=== PATIENT | female | born 1945 | race Asian ===

== ENCOUNTER 2016-10-30 23:09 | Inpatient (IN) | payer OTHER ==
[~2016-10-30] VITALS: Ht 152.4 cm; Wt 58.1 kg
[~2016-10-30 23:09] MED LIST: ALEN70TA PO; AMLO10TA PO; ATI.5 PO; CLON0.1T42 PO; COZ50 PO; GLIP10TA3 PO; HYDR-3638 PO; LACT10SO1 PO; METF850T PO; ORE25 PO; PANT40VI PO
--- NOTE | 2016-10-30 23:09 | NUR ---
Patient was BIBA at this time.
--- NOTE | 2016-10-30 23:20 | NUR ---
Patient taken to bed 06 via gurney per EMS
[2016-10-30 23:23] VITALS: BP 166/82
[2016-10-30] MEDS ORDERED: hydrALAZINE 20 MG/ML VIAL IM ONE (23:25)
[2016-10-30] MEDS ORDERED: NACL 0.9% 1,000 ML IV ONE (23:25)
--- NOTE | 2016-10-30 23:25 | NUR ---
71Y F BIB [facility] C/O HIGH BP AND SLIGHT GRADE FEVER, SEEN IN AN URGENT CARE YESTERDAY WITH EAR INFECTION WITH PRESCRIPTION. SBP 150'S AND DBP 60'S. AFEBRILE. NO DISTRESS NOTED.
--- NOTE | 2016-10-30 23:34 | NUR ---
Dr. Joy evaluating patient at bedside.
[2016-10-30 23:55] LABS: BASOPHILS # (AUTO) 0.1 K/uL (0.00-0.22); BASOPHILS % (AUTO) 2.7 % (0.0-2.0); EOSINOPHILS # (AUTO) 0.3 K/uL (0-0.4); HEMATOCRIT 36.7 % (36-48); HEMOGLOBIN 12.1 g/dL (12.0-16.0); LYMPHOCYTES # (AUTO) 0.7 K/uL (2.5-16.5); LYMPHOCYTES % (AUTO) 21.6 % (20.5-51.1); MEAN CORPUSCULAR HEMOGLOBIN 25 pg (27-31); MEAN CORPUSCULAR HGB CONC 33 g/dL (33-37); MEAN CORPUSCULAR VOLUME 77 fL (80-94); MONOCYTES # (AUTO) 0.4 K/uL (0.8-1.0); MONOCYTES % (AUTO) 12.4 % (1.7-9.3); NEUTROPHILS # (AUTO) 1.7 K/uL (1.8-7.7); NEUTROPHILS % (AUTO) 55.3 % (42.2-75.2); PLATELET COUNT (AUTO) 207 K/uL (140-450); RED BLOOD CELL COUNT(AUTO) 4.79 MIL/uL (4.20-5.40); RED CELL DISTRIBUTION WIDTH 13.8 % (11.6-13.7); WHITE BLOOD COUNT (AUTO) 3.3 K/uL (4.8-10.8)
[2016-10-31 00:01] LABS: ALBUMIN 3.8 g/dL (3.4-5.0); ANION GAP 11.6 (8-16); CALCIUM 8.6 mg/dL (8.5-10.1); CARBON DIOXIDE 31.1 mmol/L (21-32); CREATININE 0.7 mg/dL (0.6-1.3); POTASSIUM 3.7 mmol/L (3.5-5.1); TOTAL BILIRUBIN 0.4 mg/dL (0.0-1.0); TOTAL PROTEIN, SERUM 8.2 g/dL (6.4-8.2)
[2016-10-31 00:07] LABS: LACTIC ACID 2.8 mmol/L (0.4-2.0); PARTIAL THROMBOPLASTIN TIME 32.9 secs (22-35.6); PROTHROMBIN TIME 9.7 secs (10.8-13.4)
[2016-10-31] MEDS ORDERED: NACL 0.9% 1,500 ML IV ONE (00:10)
[2016-10-31] MEDS ORDERED: NACL 0.9% 250 ML IV ONE (00:10)
[2016-10-31] MEDS ORDERED: ATI.5 PO (00:26)
[2016-10-31] MEDS ORDERED: LOSA100T25 PO (00:26)
[2016-10-31] MEDS ORDERED: GLIP10TA12 PO (00:26)
[2016-10-31] MEDS ORDERED: AMLO10TA2 PO (00:26)
[2016-10-31] MEDS ORDERED: [UNRECOGNIZED DRUG - CODE] PO (00:26)
[2016-10-31] MEDS ORDERED: LON2.5 GT (00:26)
[2016-10-31] MEDS ORDERED: ALEN70TA52 PO (00:26)
[2016-10-31] MEDS ORDERED: CLON0.1T42 PO (00:26)
[2016-10-31] MEDS ORDERED: ONDANSETRON 4 MG/2 ML VIAL IVP ONE (01:10)
[2016-10-31 01:58] LABS: APPEARANCE,URINE CLEAR (CLEAR); BILIRUBIN,URINE NEGATIVE (NEGATIVE); BLOOD, URINE TRACE-I (NEGATIVE); COLOR,URINE YELLOW (YELLOW); LEUKOCYTE ESTERASE ,URINE NEGATIVE (NEGATIVE); NITRITE, URINE NEGATIVE (NEGATIVE); PH,URINE 7.5 (5.0-9.0); PROTEIN,URINE 2+ (NEGATIVE); UGLUCOSE NEGATIVE (NEGATIVE); UROBILINOGEN,URINE 0.2 EU/dL (0.2 - 1)
[2016-10-31 02:06] LABS: BACTERIA,URINE None Seen /HPF (None Seen); SQUAMOUS EPITHELIAL CELL,UR 0-3 (FEW) /LPF (0-3 (FEW)); WBC,URINE 0-5 (RARE) /HPF (0-5)
[2016-10-31 02:07] LABS: HYALINE CASTS, URINE 0-3 /LPF (None Seen); MUCUS,URINE 3+ /LPF (None Seen)
--- NOTE | 2016-10-31 03:15 | NUR ---
Patient will be admitted to care of DR POSEY. Admited to TELE. Will go to room 121B. Belongings list completed. Report to CHARLIE PEGUERO.
[2016-10-31 03:30] VITALS: BP 145/59
--- NOTE | 2016-10-31 03:30 | NUR ---
ADMITTED A PATIENT FROM ER. TRANSPORTED VIA GURNEY, ACCOMPANIED BY ER NURSE. PATIENT IS AAOX4, HAS NO COMPLAIN OF PAIN AT THIS TIME. ON ROOM AIR, NO S/S OF RESPIRATORY DISTRESS/DISCOMFORT NOTED. SKIN CHECKING BY CHARGE NURSE, NO SKIN ISSUES, SKIN IS INTACT. ID BAND UPDATED. PLAN OF CARE DISCUSSED, VERBALIZED UNDERSTANDING. SAFETY MEASURES INITIATED CALL LIGHT WITHIN REACH, WILL CONTINUE TO MONITOR.
[2016-10-31] MEDS ORDERED: MORPHINE SULFATE 2 MG/ML SYR IVP PRN (03:45)
[2016-10-31] MEDS ORDERED: HYDROcodone/APAP 5/325 MG 1 TAB TAB PO PRN (03:45)
[2016-10-31] MEDS ORDERED: ACETAMINOPHEN 325 MG TAB PO PRN (03:45)
[2016-10-31] MEDS ORDERED: ONDANSETRON 4 MG/2 ML VIAL IVP PRN (03:45)
--- NOTE | 2016-10-31 05:00 | NUR ---
PATIENT AMBULATED TO THE RESTROOM. PATIENT DENIES ANY PAIN. NO S/S OF RESPIRATORY DISTRESS/DISCOMFORT NOTED.
[2016-10-31] MEDS: NACL 0.9% 1,000 ML IV SCH ×2 (05:10→13:45)
[2016-10-31 06:38] LABS: HEMATOCRIT 33.9 % (36-48); HEMOGLOBIN 11.2 g/dL (12.0-16.0); MEAN CORPUSCULAR HEMOGLOBIN 25 pg (27-31); MEAN CORPUSCULAR VOLUME 76 fL (80-94); RED BLOOD CELL COUNT(AUTO) 4.43 MIL/uL (4.20-5.40); WHITE BLOOD COUNT (AUTO) 4.8 K/uL (4.8-10.8)
[2016-10-31 06:39] LABS: BASOPHILS % (AUTO) 0.5 % (0.0-2.0); EOSINOPHILS # (AUTO) 0.1 K/uL (0-0.4); EOSINOPHILS % (AUTO) 1.8 % (0.0-4.0); LYMPHOCYTES # (AUTO) 0.7 K/uL (2.5-16.5); LYMPHOCYTES % (AUTO) 14.5 % (20.5-51.1); MEAN CORPUSCULAR HGB CONC 33 g/dL (33-37); MONOCYTES # (AUTO) 0.4 K/uL (0.8-1.0); MONOCYTES % (AUTO) 9.3 % (1.7-9.3); NEUTROPHILS # (AUTO) 3.6 K/uL (1.8-7.7); NEUTROPHILS % (AUTO) 73.9 % (42.2-75.2); PLATELET COUNT (AUTO) 191 K/uL (140-450); RED CELL DISTRIBUTION WIDTH 13.7 % (11.6-13.7)
--- NOTE | 2016-10-31 07:10 | NUR ---
ASSUMED CONTINUITY OF CARE. NO SIGNS AND SYMPTOMS OF ACUTE DISTRESS NOTED. INITIAL ASSESSMENT DONE. KEEP COMFORTABLE ON BED. EXPLAINED DIAGNOSIS, PLAN OF CARE, PAIN MANAGEMENT TEACHING, USE OF CALL LIGHT/BED/TV/BATHROOM. VERBALIZED UNDERSTANDING. CALL LIGHT WITHIN REACH.
--- NOTE | 2016-10-31 07:10 | NUR ---
ENDORSED PATIENT TO DAY SHIFT NURSE. PATIENT IS IN STABLE CONDITION.
[2016-10-31 07:16] LABS: ANION GAP 12.4 (8-16); CARBON DIOXIDE 24.7 mmol/L (21-32); POTASSIUM 4.1 mmol/L (3.5-5.1)
[2016-10-31 07:17] LABS: CREATININE 0.6 mg/dL (0.6-1.3)
[2016-10-31 07:26] LABS: LACTIC ACID 2.5 mmol/L (0.4-2.0)
--- NOTE | 2016-10-31 07:43 | NUR ---
PATIENT HAS BEEN SCREENED AND CATEGORIZED HIGH NUTRITION RISK. PATIENT WILL BE SEEN WITHIN 1-2 DAYS OF ADMISSION. 10/31/16-11/01/[address]
[2016-10-31 08:00] VITALS: BP 136/69
--- NOTE | 2016-10-31 08:00 | NUR ---
Patient's Plan of Care was discussed and reviewed with WEEDER THINNER: BAUTISTA THOMASON
--- NOTE | 2016-10-31 08:12 | NUR ---
CM NOTE INITIAL REVIEW SENT TO [facility] FAX# [phone] PH# [phone] [address] [address]T [phone]
--- NOTE | 2016-10-31 08:28 | NUR ---
WENT TO BATHROOM WITHOUT ASSISTANCE. TOLERATED WELL. NO C/O PAIN. NO SOB, NOTED.
[2016-10-31] MEDS ORDERED: MAG SULF 2000 MG/WATER PREMIX 100 ML IV SCH (08:30)
[2016-10-31] MEDS: LORATADINE 10 MG TAB PO SCH (09:13)
[2016-10-31] MEDS: FLUTICASONE NASAL 50 MCG/ACTUATION 16 GM BTL NS SCH ×2 (09:13→20:14)
[2016-10-31 12:00] VITALS: BP 133/63
[2016-10-31] MEDS ORDERED: DEXTROSE 50% 50 ML SYR IVP PRN (12:10)
[2016-10-31] MEDS ORDERED: LACTOBACILLUS RHAMNOSUS GG 1 EACH CAP PO SCH (12:30)
[2016-10-31] MEDS ORDERED: metFORMIN 500 MG TAB PO SCH (12:30)
[2016-10-31] MEDS: cloNIDine 0.1 MG TAB PO SCH ×2 (12:58→17:45)
[2016-10-31] MEDS ORDERED: LOSARTAN 50 MG TAB PO SCH (13:00)
[2016-10-31] MEDS ORDERED: MINOXIDIL 2.5 MG TAB PO SCH (13:00)
[2016-10-31] MEDS ORDERED: amLODIPine 5 MG TAB PO SCH (13:00)
--- NOTE | 2016-10-31 13:12 | NUR ---
DR. WILL CAME INSIDE PT. ROOM AND SPOKE TO PT.. TEMP 98.2, BP 159/71, HR 74, RESP 18, O2 SAT 97% ON ROOM AIR. NO C/O PAIN. ASYMPTOMATIC. VERIFIED WITH DR. WILL ABOUT LATEST OF ORDER OF COZAAR 100 MG. PO, AMLODOPINE 10 MG PO, AND MINOXIDEL 2.[address] WILL SAID "GO AHEAD GIVE THE MEDICINE."
--- NOTE | 2016-10-31 13:45 | NUR ---
10/31/16 RD INITIAL ASSESSMENT COMPLETED PLEASE REFER TO NUTRITION ASSESSMENT UNDER CARE ACTIVITY FOR ESTIMATED NUTRITIONAL NEEDS. RD RECOMMENDATIONS: 1. CONTINUE ON CCHO 60 GM DIET TOLERATED. 2. INCREASE PROTEIN NEEDS D/T SEPSIS. 3. ENCOURAGE INCREASED PO INTAKES. 4. RD WILL F/U 3-5 DAYS; MODERATE RISK. GUANAKITO MORENO RD
[2016-10-31] MEDS ORDERED: LEVOFLOXACIN 500 MG/D5W PREMIX 100 ML IV SCH (14:00)
--- NOTE | 2016-10-31 15:52 | NUR ---
CALLED PT. [place] AT AND INFORMED PT. TRANSFER TO [facility] TODAY 10/31/16 PER MD ORDER. PTTiffany HALL VERBALIZED UNDERSTANDING VIA PHONE. INFORMED CHARGE NURSE YOGESH RHODES. Addendum: 10/31/16 at 1603 by Abdi Neal LVN WRONG ENTRY: ENTERED AT WRONG PATIENT.
[2016-10-31 16:00] VITALS: BP 135/62
[2016-10-31] MEDS ORDERED: ECOTRIN 81 MG TABEC PO SCH (16:00)
[2016-10-31] MEDS ORDERED: ATORVASTATIN 20 MG TAB PO SCH (16:00)
[2016-10-31] MEDS: glipiZIDE 10 MG TAB PO SCH (16:30)
[2016-10-31] MEDS: metFORMIN 500 MG TAB PO SCH (17:00)
[2016-10-31] MEDS: BLOOD GLUCOSE MONITORING 1 DEV DEV FS SCH ×2 (17:22→20:13)
--- NOTE | 2016-10-31 19:13 | NUR ---
REPORT GIVEN TO BOGDAN RHODES. IVF INFUSING WELL. IN STABLE CONDITION.
--- NOTE | 2016-10-31 19:14 | NUR ---
RECEIVED REPORT FROM DAY SHIFT NURSE. PT IS AWAKE WITH AT BEDSIDE. HAS NO COMPLAIN OF PAIN. ON ROOM AIR, NO S/S OF RESPIRATORY DISTRESS/DISCOMFORT NOTED. IV SITE IS PATENT, INTACT AND INFUSING WELL. PLAN OF CARE DISCUSSED, VERBALIZED UNDERSTANDING. SAFETY MEASURES CHECKED, CALL LIGHT WITHIN REACH. WILL CONTINUE TO MONITOR.
[2016-10-31 20:00] VITALS: BP 124/59
[2016-10-31] MEDS: LORazepam 0.5 MG TAB PO SCH ×2 (20:15→20:21)
[2016-10-31] MEDS: INSULIN LISPRO SLIDING SCALE 100 UNITS/ML VIAL SUBQ PRN (20:17)
--- NOTE | 2016-10-31 20:21 | NUR ---
PT REFUSED TO TAKE ATIVAN 0.5 MG. PROVIDED HEALTH TEACHING, BENEFITS AND S/E, VERBALIZED UNDERSTANDING.
[2016-11-01] VITALS: BP 139/61
--- NOTE | 2016-11-01 | NUR ---
V/S CHECKED AND STABLE. HAS NO COMPLAIN OF PAIN AT THIS TIME. NO S/S OF RESPIRATORY DISTRESS/ DISCOMFORT NOTED. CALL LIGHT WITHIN REACH.
--- NOTE | 2016-11-01 01:33 | NUR ---
PT SLEEPING AT THIS TIME. SAFETY MEASURES CHECKED, CALL LIGHT WITHIN REACH.
[2016-11-01 04:00] VITALS: BP 143/73
--- NOTE | 2016-11-01 04:08 | NUR ---
PT AMBULATED TO THE REST ROOM WITH MINIMAL ASSISTANCE. NOT IN DISTRESS. NO S/S OF RESPIRATORY DISTRESS/DISCOMFORT.
--- NOTE | 2016-11-01 05:17 | NUR ---
DIRECTOR OF ASSISTED LIVING AT BEDSIDE FOR BLOOD DRAW.
--- NOTE | 2016-11-01 05:42 | NUR ---
BLOOD SUGAR CHECKED, BSL= 111, NO INSULIN COVERAGE.
[2016-11-01 06:03] LABS: HEMATOCRIT 32.4 % (36-48); HEMOGLOBIN 10.7 g/dL (12.0-16.0); MEAN CORPUSCULAR HEMOGLOBIN 25 pg (27-31); MEAN CORPUSCULAR HGB CONC 33 g/dL (33-37); MEAN CORPUSCULAR VOLUME 76 fL (80-94); PLATELET COUNT (AUTO) 200 K/uL (140-450); RED BLOOD CELL COUNT(AUTO) 4.24 MIL/uL (4.20-5.40); RED CELL DISTRIBUTION WIDTH 13.8 % (11.6-13.7); WHITE BLOOD COUNT (AUTO) 4.2 K/uL (4.8-10.8)
[2016-11-01 06:27] LABS: ANION GAP 11.8 (8-16); CALCIUM 7.7 mg/dL (8.5-10.1); CARBON DIOXIDE 27.2 mmol/L (21-32); CREATININE 0.8 mg/dL (0.6-1.3)
[2016-11-01 06:36] LABS: MAGNESIUM 1.8 mg/dL (1.8-2.4); PHOSPHORUS 3.7 mg/dL (2.5-4.9)
[2016-11-01] MEDS: glipiZIDE 10 MG TAB PO SCH ×2 (06:43→17:21)
[2016-11-01] MEDS: BLOOD GLUCOSE MONITORING 1 DEV DEV FS SCH ×4 (06:43→21:15)
[2016-11-01 06:48] LABS: BAND % (MANUAL) 2 % (0-8); EOSINOPHILS % (MANUAL) 6 % (0-4); LYMPHOCYTES % (MANUAL) 16 % (20-46); MONOCYTES % (MANUAL) 14 % (5-12); NEUTROPHILS % (MANUAL) 62 (43-65)
--- NOTE | 2016-11-01 07:28 | NUR ---
ENDORSED REPORT TO DAY SHIFT NURSE FOR CONTINUITY OF CARE. PT IS IN STABLE CONDITION.
--- NOTE | 2016-11-01 07:30 | NUR ---
RECEIVED PT RESTING COMFORTABLY IN BED, AAOX4, ABLE TO VERBALIZE NEEDS; NO C/O PAIN OR SOB AT THIS TIME, NO S/S DISTRESS. ROUTINE/PLAN OF CARE DISCUSSED AND REVIEWED, PT VERBALIZES UNDERSTANDING AND COMPLIANCE. IVF INFUSING WELL TO RIGHT FA, SITE ASYMPTOMATIC. SAFETY PRECAUTIONS OBSERVED AND MAINTAINED. ENCOURAGED PT TO CALL FOR ASSISTANCE NEEDED.
[2016-11-01 08:00] VITALS: BP 158/72
[2016-11-01] MEDS: NACL 0.9% 1,000 ML IV SCH (08:06)
[2016-11-01] MEDS: LACTULOSE 20 GM/30 ML UDC PO SCH (08:53)
[2016-11-01] MEDS: LACTOBACILLUS RHAMNOSUS GG 1 EACH CAP PO SCH (08:53)
[2016-11-01] MEDS: MINOXIDIL 2.5 MG TAB PO SCH (08:54)
[2016-11-01] MEDS: metFORMIN 500 MG TAB PO SCH ×2 (08:54→17:21)
[2016-11-01] MEDS: cloNIDine 0.1 MG TAB PO SCH ×3 (08:55→16:45)
[2016-11-01] MEDS: LOSARTAN 50 MG TAB PO SCH (08:57)
[2016-11-01] MEDS: LORATADINE 10 MG TAB PO SCH (08:57)
[2016-11-01] MEDS: ECOTRIN 81 MG TABEC PO SCH (08:58)
[2016-11-01] MEDS: amLODIPine 5 MG TAB PO SCH (08:58)
[2016-11-01] MEDS: FLUTICASONE NASAL 50 MCG/ACTUATION 16 GM BTL NS SCH ×2 (08:59→20:25)
[2016-11-01] MEDS: LORazepam 0.5 MG TAB PO SCH ×3 (09:00→21:15)
--- NOTE | 2016-11-01 09:00 | NUR ---
VS NOTED; ADMINISTERED ROUTINE MEDS ORDERED WITH EDUCATION, PT TOLERATED WELL. INDEPENDENT ADLs OBSERVED, OOB WITH STEADY GAIT.
[2016-11-01] MEDS: ATORVASTATIN 20 MG TAB PO SCH (09:12)
--- NOTE | 2016-11-01 09:39 | NUR ---
CM NOTE CONCURRENT REVIEW SENT TO [facility] FAX# [phone] PH# [phone] [address] [address]T [phone]
[2016-11-01] MEDS ORDERED: CALCIUM CARBONATE 500 MG TAB PO SCH (10:00)
[2016-11-01 12:00] VITALS: BP 147/78
[2016-11-01] MEDS ORDERED: FUROSEMIDE 20 MG TAB PO SCH (12:00)
--- NOTE | 2016-11-01 12:00 | NUR ---
VSS. CONDITION STABLE.
[2016-11-01] MEDS: INSULIN LISPRO SLIDING SCALE 100 UNITS/ML VIAL SUBQ PRN (12:45)
[2016-11-01] MEDS ORDERED: LEVOFLOXACIN 250 MG/D5 PREMIX 50 ML IV SCH (13:00)
--- NOTE | 2016-11-01 14:40 | NUR ---
ZOFRAN IVP GIVEN ORDERED FOR C/O NAUSEA AND UPSET STOMACH, RELAXATION TECHNIQUES GIVEN. WILL CONTINUE TO MONITOR.
--- NOTE | 2016-11-01 15:00 | NUR ---
PT SEEN SITTING UP IN CHAIR NO S/S DISTRESS, VERBALIZES NAUSEA/UPSET STOMACH RELIEF.
[2016-11-01 16:00] VITALS: BP 107/51
[2016-11-01] MEDS: CALCIUM CARBONATE 500 MG TAB PO SCH (17:21)
--- NOTE | 2016-11-01 19:15 | NUR ---
RECEIVED REPORT FROM DAY SHIFT NURSE. PT IS AAOX4, HAS NO COMPLAIN OF PAIN. ON ROOM AIR, NO S/S OF RESPIRATORY DISTRESS/DISCOMFORT NOTED. IV SITE IS PATENT AND INTACT. PLAN OF CARE DISCUSSED, VERBALIZED UNDERSTANDING. SAFETY MEASURES CHECKED, CALL LIGHT WITHIN REACH. WILL CONTINUE TO MONITOR.
[2016-11-01 20:00] VITALS: BP 146/71
--- NOTE | 2016-11-01 21:16 | NUR ---
BLOOD SUGAR CHECKED, BSL= 174, INSULIN COVERAGE OF 2 UNITS, PT REFUSED TO RECEIVE INSULIN. PROVIDED HEALTH TEACHING, BENEFITS AND S/E, PT STATED " THAT'S OKAY, 174 IS OKAY."
[2016-11-02] VITALS: BP 150/87
--- NOTE | 2016-11-02 | NUR ---
PT SLEEPING, EASILY AWAKEN BY HER NAME. V/S CHECKED AND STABLE. HAS NO S/S OF RESPIRATORY DISTRESS/DISCOMFORT NOTED.
--- NOTE | 2016-11-02 02:49 | NUR ---
PT SLEEPING. NO S/S OF RESPIRATORY DISTRESS/[id number] NOTED. CALL LIGHT WITHIN REACH.
[2016-11-02 04:00] VITALS: BP 151/79
--- NOTE | 2016-11-02 04:00 | NUR ---
V/S CHECKED ANS STABLE. HAS NO COMPLAIN OF PAIN. NO S/S OF RESPIRATORY DISTRESS/DISCOMFORT NOTED.
[2016-11-02] MEDS: BLOOD GLUCOSE MONITORING 1 DEV DEV FS SCH ×2 (06:03→11:30)
--- NOTE | 2016-11-02 06:04 | NUR ---
BLOOD SUGAR CHECKED, BSL= 69. OFFERED ORANGE JUICE WITH SUGAR TO THE PT.
[2016-11-02 06:21] LABS: HEMATOCRIT 37.5 % (36-48); HEMOGLOBIN 12.3 g/dL (12.0-16.0); MEAN CORPUSCULAR HEMOGLOBIN 25 pg (27-31); MEAN CORPUSCULAR HGB CONC 33 g/dL (33-37); MEAN CORPUSCULAR VOLUME 77 fL (80-94); PLATELET COUNT (AUTO) 217 K/uL (140-450); RED BLOOD CELL COUNT(AUTO) 4.87 MIL/uL (4.20-5.40); RED CELL DISTRIBUTION WIDTH 14.3 % (11.6-13.7); WHITE BLOOD COUNT (AUTO) 3.7 K/uL (4.8-10.8)
[2016-11-02 06:40] LABS: ANION GAP 9.4 (8-16); CALCIUM 8.4 mg/dL (8.5-10.1); CARBON DIOXIDE 30.6 mmol/L (21-32); CREATININE 0.8 mg/dL (0.6-1.3)
[2016-11-02] MEDS: glipiZIDE 10 MG TAB PO SCH (06:43)
--- NOTE | 2016-11-02 07:10 | NUR ---
ENDORSED REPORT TO DAY SHIFT NURSE FOR CONTINUITY OF CARE. PT IS IN STABLE CONDITION.
[2016-11-02 07:34] LABS: BAND % (MANUAL) 2 % (0-8); EOSINOPHILS % (MANUAL) 7 % (0-4); LYMPHOCYTES % (MANUAL) 30 % (20-46); MONOCYTES % (MANUAL) 17 % (5-12); NEUTROPHILS % (MANUAL) 44 (43-65)
[2016-11-02 08:00] VITALS: BP 163/75
[2016-11-02] MEDS: LACTULOSE 20 GM/30 ML UDC PO SCH (08:43)
[2016-11-02] MEDS: MINOXIDIL 2.5 MG TAB PO SCH (08:44)
[2016-11-02] MEDS: CALCIUM CARBONATE 500 MG TAB PO SCH (08:44)
[2016-11-02] MEDS: ATORVASTATIN 20 MG TAB PO SCH (08:45)
[2016-11-02] MEDS: ECOTRIN 81 MG TABEC PO SCH (08:45)
[2016-11-02] MEDS: amLODIPine 5 MG TAB PO SCH (08:45)
[2016-11-02] MEDS: LORazepam 0.5 MG TAB PO SCH ×2 (08:46→08:58)
[2016-11-02] MEDS: LOSARTAN 50 MG TAB PO SCH (08:46)
[2016-11-02] MEDS: LACTOBACILLUS RHAMNOSUS GG 1 EACH CAP PO SCH (08:46)
[2016-11-02] MEDS: metFORMIN 500 MG TAB PO SCH (08:47)
[2016-11-02] MEDS: cloNIDine 0.1 MG TAB PO SCH (08:48)
[2016-11-02] MEDS: LORATADINE 10 MG TAB PO SCH (08:49)
[2016-11-02] MEDS: FLUTICASONE NASAL 50 MCG/ACTUATION 16 GM BTL NS SCH (08:50)
[2016-11-02] MEDS ORDERED: FUROSEMIDE 20 MG TAB PO SCH (09:00)
--- NOTE | 2016-11-02 09:45 | NUR ---
PT RESTING IN BED, CALL LIGHT WITHIN REACH, WILL CONTINUE TO MONITOR.
[2016-11-02 10:26] VITALS: BP 151/78
--- NOTE | 2016-11-02 11:15 | NUR ---
PT SITTING UP IN BED, WATCHING TV, NO S/S OF RESPIRATORY DISTRESS OR DISCOMFORT NOTED, CALL LIGHT WITHIN REACH, WILL CONTINUE TO MONITOR.
[2016-11-02] MEDS ORDERED: ATOR20TA40 PO (11:16)
[2016-11-02] MEDS ORDERED: FURO20TA8 PO (11:16)
[2016-11-02] MEDS ORDERED: ASPI81TA28 PO (11:16)
[2016-11-02] MEDS ORDERED: LEVO750T2 PO (11:30)
[2016-11-02] MEDS ORDERED: LACT10CA PO (11:31)
[2016-11-02] MEDS: INSULIN LISPRO SLIDING SCALE 100 UNITS/ML VIAL SUBQ PRN (11:46)
--- NOTE | 2016-11-02 13:45 | NUR ---
PT STABLE UPON DISCHARGE, ID BAND REMOVED, IV REMOVED, CATHETER INTACT.
--- NOTE | 2016-11-02 14:59 | NUR ---
CM NOTE CONCURRENT REVIEW SENT TO [facility] FAX# [phone] PH# [phone] [address] [address]T [phone]
== END 2016-11-02 13:45 | disposition home or self-care (01) | DRG 304 ==
LOC: MED 23:26 → MTU 10-31 02:31
PROVIDERS: ADMIT Family Medicine; ATTEND Family Medicine
DX: I16.0 Hypertensive urgency (principal); N17.0 Acute kidney failure with tubular necrosis; E87.1 Hypo-osmolality and hyponatremia; E83.42 Hypomagnesemia; H66.92 Otitis media, unspecified, left ear; E11.65 Type 2 diabetes mellitus with hyperglycemia; E83.51 Hypocalcemia; J32.9 Chronic sinusitis, unspecified; E78.5 Hyperlipidemia, unspecified; G90.9 Disorder of the autonomic nervous system, unspecified; I10 Essential (primary) hypertension; Z66 Do not resuscitate; Z79.899 Other long term (current) drug therapy; Z79.84 Long term (current) use of oral hypoglycemic drugs; Z90.5 Acquired absence of kidney; Z85.3 Personal history of malignant neoplasm of breast; Z86.73 Personal history of transient ischemic attack (TIA), and cerebral infarction without residual deficits; Z87.442 Personal history of urinary calculi; Z92.3 Personal history of irradiation; Z82.49 Family history of ischemic heart disease and other diseases of the circulatory system; Z82.3 Family history of stroke; Z83.3 Family history of diabetes mellitus
CPT/HCPCS: 36415; 70450; 71010; 80048; 80053; 81001; 82948; 83036; 83605; 83735; 83880; 84100; 84484; 85025; 85610; 85730; 87040; 87081; 87086; 93005; 93925; 93970; 93976; 96361; 96374; 96375; 97140; 99285; C1758; J0360; J1815; J1956; J2405; J3475; J7030; Q0092

== ENCOUNTER 2016-11-24 19:02 | Observation (INO) | payer OTHER ==
[~2016-11-24] VITALS: Ht 152.4 cm; Wt 59.0 kg
[~2016-11-24 19:02] MED LIST changes: +ASPI81TA28 PO; +ATOR20TA40 PO; +FURO20TA8 PO; -HYDR-3638 PO; +LACT10CA PO; +LEVO750T2 PO; +LON2.5 GT; -METF850T PO; -ORE25 PO; +[UNRECOGNIZED DRUG - CODE] PO
[2016-11-24 19:19] VITALS: BP 206/79
--- NOTE | 2016-11-24 19:23 | NUR ---
BIB BY [facility] DUE TO N/V/D AND ABDOMINAL PAIN 05/14 VERBALIZED BY THE PATIENT SINCE LAST NIGHT. AWAKE, ALERT, ORIENTED.
--- NOTE | 2016-11-24 19:23 | NUR ---
PATIENT BIB BLS TO ER BED 4.
[2016-11-24] MEDS ORDERED: NACL 0.9% 1,000 ML IV ONE ×2 (20:02→21:10)
[2016-11-24] MEDS ORDERED: ONDANSETRON 4 MG/2 ML VIAL IVP ONE (20:05)
[2016-11-24 20:28] LABS: BASOPHILS % (AUTO) 0.9 % (0.0-2.0); EOSINOPHILS # (AUTO) 0.1 K/uL (0-0.4); EOSINOPHILS % (AUTO) 1.4 % (0.0-4.0); HEMATOCRIT 38.2 % (36-48); HEMOGLOBIN 12.4 g/dL (12.0-16.0); LYMPHOCYTES # (AUTO) 1.1 K/uL (2.5-16.5); LYMPHOCYTES % (AUTO) 25.1 % (20.5-51.1); MEAN CORPUSCULAR HEMOGLOBIN 25 pg (27-31); MEAN CORPUSCULAR HGB CONC 32 g/dL (33-37); MEAN CORPUSCULAR VOLUME 76 fL (80-94); MONOCYTES # (AUTO) 0.6 K/uL (0.8-1.0); MONOCYTES % (AUTO) 13.6 % (1.7-9.3); NEUTROPHILS # (AUTO) 2.6 K/uL (1.8-7.7); PLATELET COUNT (AUTO) 229 K/uL (140-450); RED BLOOD CELL COUNT(AUTO) 5.03 MIL/uL (4.20-5.40); RED CELL DISTRIBUTION WIDTH 13.3 % (11.6-13.7); WHITE BLOOD COUNT (AUTO) 4.4 K/uL (4.8-10.8)
[2016-11-24 20:33] LABS: APPEARANCE,URINE CLEAR (CLEAR); BILIRUBIN,URINE NEGATIVE (NEGATIVE); BLOOD, URINE TRACE-L (NEGATIVE); COLOR,URINE YELLOW (YELLOW); LEUKOCYTE ESTERASE ,URINE NEGATIVE (NEGATIVE); NITRITE, URINE NEGATIVE (NEGATIVE); PH,URINE 7.5 (5.0-9.0); PROTEIN,URINE 3+ (NEGATIVE); UGLUCOSE NEGATIVE (NEGATIVE); UROBILINOGEN,URINE 0.2 EU/dL (0.2 - 1)
[2016-11-24 20:43] LABS: RBC,URINE 0-5 (RARE) /HPF (0-5); WBC,URINE 6-15 (FEW) /HPF (0-5)
[2016-11-24 20:44] LABS: BACTERIA,URINE 1+ /HPF (None Seen); SQUAMOUS EPITHELIAL CELL,UR 0-3 (FEW) /LPF (0-3 (FEW))
[2016-11-24 20:54] LABS: INR 1.1 (0.8-1.2); PROTHROMBIN TIME 10.1 secs (10.8-13.4)
[2016-11-24 20:58] LABS: ALBUMIN 3.8 g/dL (3.4-5.0); ANION GAP 15.1 (8-16); CALCIUM 9.2 mg/dL (8.5-10.1); CARBON DIOXIDE 27.4 mmol/L (21-32); CREATININE 0.8 mg/dL (0.6-1.3); POTASSIUM 3.5 mmol/L (3.5-5.1); TOTAL BILIRUBIN 0.5 mg/dL (0.0-1.0); TOTAL PROTEIN, SERUM 8.8 g/dL (6.4-8.2)
[2016-11-24 21:02] LABS: LACTIC ACID 3.8 mmol/L (0.4-2.0)
--- NOTE | 2016-11-24 21:09 | NUR ---
PT RETURN FROM CT
[2016-11-24] MEDS ORDERED: PIPERACILLIN/TAZOBACTAM 3.375 GM in DEXTROSE 5% 50 ML IV ONE (21:10)
[2016-11-24] MEDS ORDERED: PIPERACILLIN/TAZOBACTAM 3.375 GM VIAL IV ONE (21:18)
[2016-11-24] MEDS ORDERED: SERT25TA PO (21:31)
[2016-11-24] MEDS ORDERED: ORE25 PO (21:31)
[2016-11-24] MEDS ORDERED: ACETAMINOPHEN 325 MG TAB PO PRN (23:35)
[2016-11-24] MEDS ORDERED: ONDANSETRON 4 MG/2 ML VIAL IVP PRN (23:35)
[2016-11-24] MEDS ORDERED: HYDROcodone/APAP 5/325 MG 1 TAB TAB PO PRN (23:35)
[2016-11-24] MEDS ORDERED: DEXTROSE 50% 50 ML SYR IVP PRN (23:45)
[2016-11-25 00:10] VITALS: BP 149/95
--- NOTE | 2016-11-25 00:15 | NUR ---
Patient will be admitted to care of DR. PALMER. Admited to TELEMETRY. Will go to room 107. Belongings list completed. Report to CLARIZE RN AT 23:21.
--- NOTE | 2016-11-25 00:16 | NUR ---
PT RECEIVED FROM ER VIA [facility]. INITIAL ASSESSMENT COMPLETED. ATTACHED TO TELE MONITOR. IV ACCESS AT RIGHT FOREARM 20G, PATENT, INTACT. SKIN INTACT. NO SIGNS OF DISTRESS. MRSA SWAB SENT TO LAB. WILL CONTINUE TO MONITOR.
[2016-11-25] MEDS: NACL 0.9% 1,000 ML IV SCH ×2 (00:29→09:34)
[2016-11-25 00:36] LABS: CHOL/HDL RATIO 2.1 (1-4.5)
[2016-11-25 00:49] LABS: FREE T4 (FREE THYROXINE) 1.26 ng/dL (0.76-1.46); THYROID STIMULATING HORMONE 1.09 uIU/mL (0.34-3.76)
--- NOTE | 2016-11-25 01:00 | NUR ---
RECEIVED A CALL BACK FROM DR. PALMER, NOTIFIED OF LACTIC ACID 3.1. NO ORDERS MADE.
[2016-11-25 04:00] VITALS: BP 135/89
--- NOTE | 2016-11-25 05:01 | NUR ---
NOTED SINUS OCTAVIO ON THE MONITOR. PT AWAKE, ALERT, ORIENTED. ABLE TO GO TO THE BATHROOM. NO DIZZINESS, NO DISTRESS, NO SOB NOTED, DENIES PAIN AT THIS TIME. WILL CONTINUE TO MONITOR.
[2016-11-25 06:31] LABS: BASOPHILS % (AUTO) 1.5 % (0.0-2.0); EOSINOPHILS % (AUTO) 1.5 % (0.0-4.0); HEMATOCRIT 32.9 % (36-48); HEMOGLOBIN 10.5 g/dL (12.0-16.0); LYMPHOCYTES % (AUTO) 30.7 % (20.5-51.1); MEAN CORPUSCULAR HEMOGLOBIN 25 pg (27-31); MEAN CORPUSCULAR HGB CONC 32 g/dL (33-37); MEAN CORPUSCULAR VOLUME 78 fL (80-94); MONOCYTES # (AUTO) 0.6 K/uL (0.8-1.0); MONOCYTES % (AUTO) 17.7 % (1.7-9.3); NEUTROPHILS # (AUTO) 1.5 K/uL (1.8-7.7); NEUTROPHILS % (AUTO) 48.6 % (42.2-75.2); PLATELET COUNT (AUTO) 191 K/uL (140-450); RED BLOOD CELL COUNT(AUTO) 4.24 MIL/uL (4.20-5.40); RED CELL DISTRIBUTION WIDTH 13.6 % (11.6-13.7)
[2016-11-25 06:55] LABS: ANION GAP 12.4 (8-16); CARBON DIOXIDE 27.4 mmol/L (21-32); CREATININE 0.6 mg/dL (0.6-1.3); POTASSIUM 3.8 mmol/L (3.5-5.1)
[2016-11-25 07:03] LABS: MAGNESIUM 1.4 mg/dL (1.8-2.4); PHOSPHORUS 3.3 mg/dL (2.5-4.9); WHITE BLOOD COUNT (AUTO) 3.1 K/uL (4.8-10.8)
--- NOTE | 2016-11-25 07:11 | NUR ---
REPORT GIVEN TO CHARLIE LUNDBERG FOR CONTINUITY OF CARE. NO DISTRESS NOTED AT THIS TIME
--- NOTE | 2016-11-25 07:12 | NUR ---
RECEIVED PT AWAKE AND LYING ON BED, AAOX4, WITH NO S/S OF RESPIRATORY DISCOMFORT OR DISTRESS, WITH IV ACCESS ON RIGHT FOREARM 20G INFUSING FLUIDS WELL. SKIN IS INTACT. SAFETY PRECAUTIONS ENFORCED, DISCUSSED PLAN OF CARE , PT VERBALIZED UNDERSTANDING. CALL LIGHT WITHIN REACH, WILL CONTINUE TO MONITOR.
[2016-11-25 08:00] VITALS: BP 155/71
[2016-11-25] MEDS: BLOOD GLUCOSE MONITORING 1 DEV DEV FS SCH ×3 (08:08→16:35)
[2016-11-25] MEDS: glipiZIDE 10 MG TAB PO SCH ×2 (08:14→16:32)
--- NOTE | 2016-11-25 08:23 | NUR ---
DUE MEDS GIVEN, PT TOLERATED WELL. CALL LIGHT WITHIN REACH, WILL CONTINUE TO MONITOR.
[2016-11-25] MEDS ORDERED: ECOTRIN 81 MG TABEC PO SCH (09:00)
[2016-11-25] MEDS ORDERED: amLODIPine 5 MG TAB PO SCH (09:00)
[2016-11-25] MEDS ORDERED: METFORMIN HCL PO SCH (09:00)
[2016-11-25] MEDS ORDERED: LOSARTAN 50 MG TAB PO SCH (09:00)
[2016-11-25] MEDS ORDERED: DOCUSATE SODIUM 100 MG GELCAP PO SCH (09:00)
[2016-11-25] MEDS ORDERED: SERTRALINE 50 MG TAB PO SCH (09:00)
[2016-11-25] MEDS ORDERED: SERTRALINE HCL 25 MG PO SCH (09:00)
[2016-11-25] MEDS ORDERED: LORazepam 0.5 MG TAB PO SCH (09:00)
[2016-11-25] MEDS ORDERED: HYDROCHLOROTHIAZIDE 25 MG TAB PO SCH (09:00)
--- NOTE | 2016-11-25 09:20 | NUR ---
DR PALMER NOTIFIED OF MAGNESIUM LEVELS, WILL AWAIT FOR ORDERS
[2016-11-25] MEDS: cloNIDine 0.1 MG TAB PO SCH ×3 (09:29→16:33)
--- NOTE | 2016-11-25 10:25 | NUR ---
DR PALMER AT BEDSIDE
[2016-11-25] MEDS ORDERED: MAG SULF 2000 MG/WATER PREMIX 50 ML IV ONE (10:50)
--- NOTE | 2016-11-25 11:30 | NUR ---
DAUGHTER AT BEDSIDE, PT AWAKE SITTING ON BED TALKING TO DR PALMER. PT HAS BROUGHT HOME MEDS, A TOTAL OF 12 BOTTLES SENT TO PHARMACY.
[2016-11-25] MEDS ORDERED: METOCLOPRAMIDE 10 MG/2 ML INJ VIAL IVP SCH ×2 (11:50→21:00)
[2016-11-25] MEDS ORDERED: METOCLOPRAMIDE 10 MG/2 ML INJ VIAL IVP PRN (11:55)
[2016-11-25 12:00] VITALS: BP 153/80
[2016-11-25] MEDS: INSULIN LISPRO SLIDING SCALE 100 UNITS/ML VIAL SUBQ PRN ×2 (12:23→16:41)
--- NOTE | 2016-11-25 13:15 | NUR ---
PT AWAKE WATCHING TV WITH CHILDREN AT BEDSIDE. NO COMPLAINTS AT THIS TIME. CALL LIGHT WITHIN REACH, WILL CONTINUE TO MONITOR
--- NOTE | 2016-11-25 15:01 | NUR ---
PT ASLEEP, NO S/S OF DISTRESS. CALL LIGHT WITHIN REACH, WILL CONTINUE TO MONITOR.
[2016-11-25] MEDS ORDERED: METO-485 PO (15:23)
[2016-11-25 16:00] VITALS: BP 143/58
[2016-11-25 16:33] VITALS: BP 143/58
--- NOTE | 2016-11-25 16:40 | NUR ---
DISCHARGE PRESCRIPTIONS AND INSTRUCTIONS GIVEN, ID WRISTBAND, TELE MONITOR AND IV ACCESS REMOVED, CATHETER TIP INTACT. STRESSED IMPORTANCE OF FOLLOW UP WITH PCP. PT LEFT UNIT ON A WHEELCHAIR ACCOMPANIED BY AND NA IN STABLE CONDITION
[2016-11-25] MEDS ORDERED: PATIENTS OWN TABLET PO SCH (17:00)
[2016-11-25] MEDS ORDERED: MAGNESIUM OXIDE 400 MG TAB PO SCH (21:00)
== END 2016-11-25 16:40 | disposition home or self-care (01) ==
LOC: MED 19:04 → MIC 22:11 → UNDOADMOB 22:11 → MTU 23:00
PROVIDERS: ADMIT Student in an Organized Health Care Education/Training Program; ATTEND Student in an Organized Health Care Education/Training Program
DX: R10.9 Unspecified abdominal pain (principal); R80.9 Proteinuria, unspecified; E87.1 Hypo-osmolality and hyponatremia; E11.65 Type 2 diabetes mellitus with hyperglycemia; N20.0 Calculus of kidney; E83.42 Hypomagnesemia; I10 Essential (primary) hypertension; K21.9 Gastro-esophageal reflux disease without esophagitis; Z87.891 Personal history of nicotine dependence; Z82.3 Family history of stroke; Z83.3 Family history of diabetes mellitus; Z82.49 Family history of ischemic heart disease and other diseases of the circulatory system
CPT/HCPCS: 36415; 74176; 80048; 80053; 80061; 81001; 82948; 83036; 83605; 83690; 83735; 83880; 83930; 83935; 84100; 84300; 84439; 84443; 84484; 85025; 85610; 87040; 87081; 87086; 93005; 96361; 96365; 96366; 96367; 96372; 96375; 99291; G0378; J2405; J2543; J2765; J3475; J7030; 99285

== ENCOUNTER 2022-08-03 13:59 | Emergency (ER) | payer OTHER ==
[~2022-08-03] VITALS: Ht 144.8 cm; Wt 45.4 kg
[~2022-08-03 13:59] MED LIST changes: -ALEN70TA PO; +ASPI-1856 PO; -ASPI81TA28 PO; -ATOR20TA40 PO; +CLON0.1T16 PO; -CLON0.1T42 PO; -COZ50 PO; -FURO20TA8 PO; +HYDR-4004 PO; -LACT10SO1 PO; -LEVO750T2 PO; +LOSA50TA57 PO; +METF750T45 PO; +METO-485 PO; -PANT40VI PO; +SERT-514 PO; -[UNRECOGNIZED DRUG - CODE] PO
--- NOTE | 2022-08-03 14:03 | NUR ---
PATIENT BIBA TO BED 5.
[2022-08-03 14:07] VITALS: BP 212/61
--- NOTE | 2022-08-03 14:10 | NUR ---
77F BIBA from home with c/o right shoulder pain s/p. Per EMS, daughter witnessed fall, denies LOC, deformity and swelling noted to right shoulder. EMS reports pt has right sided deficit due to stroke 1 year ago. Pt placed on bedside monitor, Dr. Monroe at bedside evaluating pt.
[2022-08-03] MEDS ORDERED: MORPHINE SULFATE 4 MG/ML SYR IVP ONE (14:15)
[2022-08-03] MEDS ORDERED: NACL 0.9% 500 ML IV ONE (14:15)
[2022-08-03] MEDS ORDERED: ONDANSETRON 4 MG/2 ML VIAL IVP ONE (14:15)
[2022-08-03] MEDS ORDERED: ACET-9527 PO (15:33)
[2022-08-03] MEDS ORDERED: LID5T TP (15:33)
[2022-08-03] MEDS ORDERED: ONDA-188 PO (15:33)
[2022-08-03] MEDS ORDERED: DOCU-299 PO (15:33)
[2022-08-03] MEDS ORDERED: ACET-10509 PO (15:33)
--- NOTE | 2022-08-03 15:40 | NUR ---
IV removed, catheter intact and site benign. Applied folded 4x4 gauze and tape to stop bleeding.
--- NOTE | 2022-08-03 15:44 | NUR ---
sling applied to L shoulder
--- NOTE | 2022-08-03 16:02 | NUR ---
Patient discharged with v/s stable. Written and verbal after care instructions given and explained. Patient alert, oriented and verbalized understanding of instructions. Wheel Chair Assisted with to car. All questions addressed prior to discharge. ID band removed. Patient advised to follow up with PMD. Rx of Tylenol, Hydrocodone, Colace, Lidocaine patch and Zofran given. Patient educated on indication of medication including possible reaction and side effects. Opportunity to ask questions provided and answered.
== END 2022-08-03 16:02 | disposition home or self-care (01) ==
LOC: MED 13:59
DX: S42.291A Other displaced fracture of upper end of right humerus, initial encounter for closed fracture (principal); E11.9 Type 2 diabetes mellitus without complications; R51.9 Headache, unspecified; I10 Essential (primary) hypertension; Z79.82 Long term (current) use of aspirin; Z79.84 Long term (current) use of oral hypoglycemic drugs; Z79.899 Other long term (current) drug therapy; W19.XXXA Unspecified fall, initial encounter; Y93.89 Activity, other specified; Y92.89 Other specified places as the place of occurrence of the external cause; Y99.8 Other external cause status
CPT/HCPCS: 70450; 71045; 72125; 73030; 73060; 96374; 96375; 99284; J2270; J2405